=== PATIENT | female | born 1960 | race Caucasian/White ===

== ENCOUNTER 2018-12-10 08:58 | Inpatient (IN) ==
--- NOTE | 2018-12-10 08:29 | Discharge Summary ---
Orders not resulted at time of discharge: Pending orders 12/10/18 01:00 XR knee LT 1-2V [XR] Routine Hemoglobin and Hematocrit [HEME] Routine Date of Encounter: 12/11/18 Time of Encounter: 10:50 - Discharge Diagnosis (1) Arthritis of left knee Priority: Primary Status: Chronic (2) Status post total left knee replacement Priority: Primary Status: Acute (3) History of peptic ulcer disease Priority: Secondary Status: Chronic (4) Fibromyalgia Priority: Secondary Status: Chronic (5) Prediabetes Priority: Secondary Status: Chronic (6) History of anemia Priority: Secondary Status: Chronic (7) Vitamin B12 deficiency Priority: Secondary Status: Chronic - Hospital Course Hospital course: Ms. Duenas is a 58 year old female POD#1 Left robotic-assisted Total knee repl acement [arthritis] 12/10/18 Patient seen at bedside. A&Ox3 Dressing and incision intact. Bloody drainage bottom half of dressing - no active bleeding noted. No calf tenderness, erythema, or warmth. Neurovascularly intact b/l LE. Labwork, vitals, and medications reviewed. Pain control: Adequate Participating in therapy. All questions and concerns addressed. Educated on use of incentive spirometer, ambulation, and hydration. Patient educated on post-operative restrictions and care. Addressed: Nursing staff instructed to change dressing. Patient concerned about Aspirin use with h/o PUD and GI bleeds. Will have patient continue Lovenox upon discharge. Patient course and disposition discussed with Dr. Alvarez D/C plan: Home with Home health therapy today. Outpatient ortho follow up arranged. - Time Spent with Patient Total time spent providing and/or coordinating discharge services: - Discharge Medications Prescriptions: New Docusate Sodium [Colace] 100 mg PO BID 5 Days #10 capsule OxyCODONE Immed Rel [Roxicodone 5 MG] 5 mg PO Q6HR PRN 5 Days #20 tablet PRN Reason: Severe Pain Enoxaparin [Lovenox] 30 mg SQ Q12HCO 14 Days #28 syringe Acetaminophen [Non-Aspirin Extra Strength] 500 mg PO Q6H PRN 7 Days #28 tablet PRN Reason: Mild To Moderate Pain Continued Cholecalciferol (D-3) [Vitamin D] 1,000 unit PO DAILY Ca/Soy/Blk Cohos/Richard/Tea/Caf [Hm Estroplus Max Strength Cplt] 1 tab PO DAILY Lisinopril-HCTZ 10-12.5 [Prinzide 10-12.5] 1 tab PO DAILY Cyclobenzaprine [Flexeril] 10 mg PO HS PRN PRN Reason: Muscle Spasm Gabapentin [Neurontin] 800 mg PO HS Duloxetine HCl [Cymbalta] 120 mg PO DAILY Mv-Mn/FA/Vit K/Lycop/Lut/Coq10 [Daily Multivitamin Capsule] 1 tab PO DAILY Zolpidem Tartrate 5 mg PO HS PRN PRN Reason: Sleep Cyanocobalamin/Folic Acid [B-12 1,000 Mcg Sub Tablet] 1 tab SL Q48H Ferrous Sulfate 325 mg PO DAILY Fluticasone Propionate Nasal [Flonase] 1 spray NS DAILY PRN PRN Reason: Allergy Symptoms Discontinued HYDROcodone/Acet 5/325 mg [[place] 5-325 mg] 1 tab PO TID PRN PRN Reason: Pain Home Medications: Ca/Soy/Blk Cohos/Richard/Tea/Caf [Hm Estroplus Max Strength Cplt] 1 tab PO DAILY 07/11/17 [History] Cholecalciferol (D-3) [Vitamin D] 1,000 unit PO DAILY 07/11/17 [History] Cyclobenzaprine [Flexeril] 10 mg PO HS PRN 07/11/17 [History] Duloxetine HCl [Cymbalta] 120 mg PO DAILY 07/11/17 [History] Gabapentin [Neurontin] 800 mg PO HS 07/11/17 [History] Lisinopril-HCTZ 10-12.5 [Prinzide 10-12.5] 1 tab PO DAILY 07/11/17 [History] Mv-Mn/FA/Vit K/Lycop/Lut/Coq10 [Daily Multivitamin Capsule] 1 tab PO DAILY 07/11/17 [History] Cyanocobalamin/Folic Acid [B-12 1,000 Mcg Sub Tablet] 1 tab SL Q48H 12/10/18 [History] Ferrous Sulfate 325 mg PO DAILY 12/10/18 [History] Fluticasone Propionate Nasal [Flonase] 1 spray NS DAILY PRN 12/10/18 [History] Zolpidem Tartrate 5 mg PO HS PRN 12/10/18 [History] Acetaminophen [Non-Aspirin Extra Strength] 500 mg PO Q6H PRN 7 Days #28 tablet 12/11/18 [Rx] Docusate Sodium [Colace] 100 mg PO BID 5 Days #10 capsule 12/11/18 [Rx] Enoxaparin [Lovenox] 30 mg SQ Q12HCO 14 Days #28 syringe 12/11/18 [Rx] OxyCODONE Immed Rel [Roxicodone 5 MG] 5 mg PO Q6HR PRN 5 Days #20 tablet 12/11/18 [Rx] Allergies/Adverse Reactions: Allergy/AdvReac Type Severity Reaction Status Date / Time ciprofloxacin [From Cipro] Allergy Anaphylaxis Verified 11/21/18 15:03 Sulfa (Sulfonamide Allergy Hives Verified 11/21/18 15:03 Antibiotics) codeine AdvReac See Verified 11/21/18 15:03 Comments meloxicam AdvReac GI Bleed Verified 11/21/18 15:03 Date of admission: 12/10/18 Primary care physician: Gibson Browning MD Discharging clinician: Jose Alvarez Anticipated date of discharge: 12/11/18 - VTE Documentation of Mechanical Device: Venous foot pump, device - Patient Status Disposition: Home Health Service Condition: Good Functional capacity at discharge: uses cane/walker Overall status at discharge: patient is progressing back to baseline - Discharge Instructions Follow Up With: Yamilet Dean PAC [Physician Salesforce Trainer] - 12/19/18 1:30 pm (Second followup 12/26/18 @ 9:30am) Jose Alvarez MD [Partnered Physician] - 01/07/19 5:40 pm Additional Instructions: Discharge Instructions: Total Knee Replacement Please call [facility] ([phone]), your Primary Care Physician, or report to the Emergency Room if you have any of the following symptoms: Nausea, vomiting, fever greater that 101.5, swelling, chest pain, shortness of breath, increased pain/redness/drainage/odor for your incision site, numbness/tingling, or any other concerning symptoms. ACTIVITY:Weight-bearing as tolerated. You may progress off support (crutches or walker) as tolerated. Incentive Spirometer 10 times an hour. MEDICATIONS: Upon discharge resume your home medications. Take all the medications as prescribed. Take a stool softener if taking narcotic pain medications. Stool softeners are only effective if you drink enough fluids. Dri nk 6-8 glass of water or fluids a day, unless this is not allowed for another health problem. Despite using stool softeners, if you haven't had a bowel movement in 3 days, please switch to a gentle laxative. Gentle laxatives are sold over the counter. You should have a bowel movement within 24 hours, if not call the office. You will be discharged from the hospital with a prescription for pain m edication. You are encouraged to decrease the use of narcotic pain medication as tolerated. Should you require a refill, please call the office. [facility] prescribes narcotic pain medication for only 4-6 weeks after surgery. If you require pain medication beyond this time period, you may be referred to your Primary Care Physician or to the Pain Clinic for further evaluation. Plan ahead for refills on pain medication as many narcotics either need to be picked up at the office or mailed. It is best to call 48-72 hours in advance of needing a prescription refill so you don't run out of medication. To help control the post-operative pain, you may take NSAIDs (Aleve,Advil, Motrin, Ibuprofen, Naprosyn) or Tylenol as prescribed on the bottle in addition to the pain medication. ANTICOAGULATION (blood thinners): Continue your Aspirin, Lovenox or Coumadin as prescribed to help prevent a blood clot in the leg or in the lungs. As long as your incision remains dry and you tolerate the NSAIDs (Aleve, Advil, Motrin, ibuprofen, naprosyn), it is OK to use the NSAIDS while you are taking your anticoagulation medication. Should your incision start to drain, stop the NSAID and contact our office. Common symptoms of blood clot in the legs include: localized pain, swelling, calf tenderness, redness or discoloration of the skin. Blood clot in the lung symptoms include: shortness of breath, rapid pulse, sweating, and chest pain that worsens with deep breathing, coughing up blood, lightheadedness, feelings of anxiety. If you experience any of these symptoms notify your physician immediately, go to the emergency room, or if having trouble breathing, call 911. WOUND CARE: Leave the dressing on for 7 to 10days. You may change the dressing if it becomes saturated greater than 50%. Do not get the dressing wet at anytime. Wash your hands with antibacterial soap, rinse and dry prior to any wound care. If you have amelia the visiting nurse or rehab facility can remove the stapes 10-14 days after surgery and place steri-strips across the wound. Kassidy ve the steri-strips in place until they fall off on their won. You may let water from the shower run on top of the steri-strips. If you do not have a visiting nurse or rehab facility, you will need to return to the office at 10-14 days for the amelia to be removed. If you have itching or redness around the dressing call the office. FOLLOW-UP: Please follow up with your surgeon in the orthopedic clinic in 4 weeks from the day of surgery. If you have amelia that need to be removed, you will need to come back to the office in 10-14 days from the day of surgery. - Diet and Activity Activity: as per physical therapy Diet: advance to your usual diet
[~2018-12-10 08:58] MED LIST: Ropivacaine/PF 0.5% 24.62 ML, EPINEPHrine 0.25 MG, Ketorolac 15 MG, Water for inj. (ste... IR ONE
[2018-12-10] MEDS ORDERED: CeFAZolin Syr 2,000MG/20 ML 2,000 MG/20 ML SYRINGE IVPB ONE (09:16)
--- NOTE | 2018-12-10 09:22 | History & Physical Report ---
Date of Encounter: 12/10/18 Time of Encounter: 09:22 24 Hour HP Update - Instructions Instructions: If the History and Physical is less than 30 days old and was completed prior to A.M. admission and or procedure and has NOT been updated on calendar day of procedure please complete this update prior to performing procedure. - Update Patient reports changes in Medical Condition: No Changes in examination, assessment, or condition: No Changes in Medication: No Preop tests/diagnostics Reviewed: Yes Surgery Remains Indicated: Yes Consent for Planned Operative Procedure(s) Verified: Yes - Pre-Operative Checklist Preoperative Checklist Indicated: No Prophylactic Antibiotic Ordered: Yes Is VTE Prophylaxis Indicated?: Yes
[2018-12-10] MEDS ORDERED: Ringers Solution, Lactated 1,000 ML IVC SCH ×2 (09:30→13:35)
[2018-12-10] MEDS ORDERED: *HR* FentaNYL (PF) 100 MCG/2 ML VIAL ONE (09:39)
[2018-12-10] MEDS ORDERED: *HR* Midazolam HCl 2 MG/2 ML VIAL ONE (09:39)
[2018-12-10] MEDS ORDERED: Lidocaine -MPF 2% 2 ML VIAL ONE (09:40)
[2018-12-10] MEDS ORDERED: Propofol 500 MG/50 ML INFUS..BTL ONE ×2 (09:41→13:05)
[2018-12-10] MEDS ORDERED: Ethanol\\Acetic Acid\\Na Ace\\Ben 1,000 ML IRRIG.SOLN IR ONE (10:23)
[2018-12-10] MEDS ORDERED: ROPIVACAINE HCL/PF 0.5% 30 ML VIAL ONE (10:35)
--- NOTE | 2018-12-10 10:37 | Anesthesia Evaluation PreOp ---
Date of Encounter: 12/10/18 Time of Encounter: 10:35 - Past History Planned Operation: Left Total Knee Arthroplasty Cardiac History: HTN Pulmonary History: Snore, ESTEFANI Dx (uses CPAP) PROPERTY MANAGEMENT ACCOUNTANT History: Denies Any Significant HX Other Medical History: Other (depression, fibromyalgia) Anesthesia History: No Prior Anesthetic Complications, Past Anesthesia Alcohol Use: occasionally Drug use: none Medications and Allergies Ca/Soy/Blk Cohos/Richard/Tea/Caf [Hm Estroplus Menopause Caplet] 1 tab PO DAILY 07/11/17 [History] Cholecalciferol (D-3) [Vitamin D] 1,000 unit PO DAILY 07/11/17 [History] Cyclobenzaprine [Flexeril] 10 mg PO HS PRN 07/11/17 [History] Duloxetine HCl [Cymbalta] 120 mg PO DAILY 07/11/17 [History] Gabapentin [Neurontin] 800 mg PO HS 07/11/17 [History] HYDROcodone/Acet 5/325 mg [[place] 5-325 mg] 1 tab PO TID PRN 07/11/17 [History] Lisinopril-HCTZ 10-12.5 [Prinzide 10-12.5] 1 tab PO DAILY 07/11/17 [History] Mv-Mn/FA/Vit K/Lycop/Lut/Coq10 [Daily Multivitamin Capsule] 1 tab PO DAILY 07/11/17 [History] Cyanocobalamin/Folic Acid [B-12 1,000 Mcg Sub Tablet] 1 tab SL Q48H 12/10/18 [History] Ferrous Sulfate 325 mg PO DAILY 12/10/18 [History] Fluticasone Propionate Nasal [Flonase] 1 spray NS DAILY PRN 12/10/18 [History] Zolpidem Tartrate 5 mg PO HS PRN 12/10/18 [History] Allergy/AdvReac Type Severity Reaction Status Date / Time ciprofloxacin [From Cipro] Allergy Anaphylaxis Verified 11/21/18 15:03 Sulfa (Sulfonamide Allergy Hives Verified 11/21/18 15:03 Antibiotics) codeine AdvReac See Verified 11/21/18 15:03 Comments meloxicam AdvReac GI Bleed Verified 11/21/18 15:03 - Meds/Allergy Pre-op Review Medications Reviewed: Yes Allergies Reviewed: Yes Beta Blockers on Current Med List: No Anesthesia Results - Labs Laboratory Tests 11/21/18 11/21/18 11/21/18 15:20 15:20 15:20 WBC 5.5 Hgb 11.7 Hct 36.1 Plt Count 260 PT 10.4 INR 0.9 APTT 32.2 Sodium 139 Potassium 4.0 BUN 18 Creatinine 0.61 - Imaging EKG: report reviewed (11/21/2018 SINUS RHYTHM LOW QRS VOLTAGE IN PRECORDIAL LEADS ANTERIOR MYOCARDIAL INFARCTION, OF INDETERMINATE AGE INFERIOR MYOCARDIAL INFARCTION, OF INDETERMINATE AGE) Anesthesia Exam O2 Sat Height 1.68 m Height 1.68 m Weight 92.533 kg Weight 92.533 kg O2 Sat by Pulse Oximetry 98 Vital Signs Temp Pulse Resp BP Pulse Ox 99.0 F 74 18 99/61 98 12/10/18 09:55 12/10/18 09:55 12/10/18 09:55 12/10/18 09:55 12/10/18 09:55 Height: 5'6'' Weight: 204 lbs NPO (# of Hours): 8 Pain Scale: 0 Pain Scale Used: Numeric (1 - 10) - HEENT Pupil (Motor): EOMI Mallampati: II Teeth: Normal Oral Opening: Greater than 3 - PROPERTY MANAGEMENT ACCOUNTANT LOC: Oriented PROPERTY MANAGEMENT ACCOUNTANT Motor: Normal RUE, Normal LUE, Normal RLE, Normal LLE, Normal Face PROPERTY MANAGEMENT ACCOUNTANT Sensory: Normal: RUE, LUE, RLE, LLE, Face - Cardiac Rhythm: Regular Murmur: None - Pulmonary Breath Sounds: bilateral Clear Respiratory Effort: Symmetrical Anesthesia Assess/Plan ASA Score: 2 Level of consciousness: Cooperative, Oriented, Tranquil Anesthetic Plan: Regional Nerve Block, Spinal Regional Nerve Block Plan: Adductor canal Monitoring Plan: Standard Monitors Recovery Plan: PACU
[2018-12-10] MEDS ORDERED: Gabapentin 300 MG CAPSULE PO ONE (10:43)
[2018-12-10] MEDS ORDERED: Gabapentin 300 MG CAPSULE ONE (10:46)
[2018-12-10] MEDS ORDERED: *HR* PHENYLEPHRINE 1,000 MCG/10 ML SYRINGE IVP ONE ×2 (11:26→13:05)
[2018-12-10] MEDS ORDERED: EPHEDrine 50 MG/ML VIAL ONE (11:35)
--- NOTE | 2018-12-10 12:10 | Orthopedic Operative Note ---
Date of procedure: 12/10/18 Pre-op diagnosis: Left knee arthritis Post-op diagnosis: same Procedure: Procedure: Left robotic-assisted Total knee replacement Estimated blood loss: 200 cc Hardware: Metal and polyethylene replacement. [place] Femur: 3 Tibia: 3 TS insert: 9 Patella: 36 Exam Under anesthesia: 9 degrees flexion contracture 4 degrees varus as calculated by the robot full flexion and no instability Procedural Notes: Grade 4 arthritic changes all 3 compartments. Operative procedure: The patient was brought to the operating room and placed on the operating room table. After general anesthesia was administered the operative knee was examined. Findings were noted in the exam under anesthesia. The operative extremity was prepped and draped in sterile surgical fashion. The patient received IV antibiotics prior to skin incision. A standard midline incision was made centered over the patella. The incision was made through the skin and subcutaneous tissue. A medial parapatellar tendon approach was performed. Care was taken to preserve tissue along the medial aspect of the patella. And to protect the patella tendon. The deep MCL was released off the medial tibia. The infra patella fat pad was excised. The patella was everted and cut was made at the level of the insertion of the quadriceps and patella tendon. The patella was sized the guide was seated and the lug holes are drilled. Knee was brought into flexion. Patient noted to have grade 4 arthritic changes all 3 components. Steinmann pins were placed in the tibia and the femur for the tibial and femoral arrays respectively. Checkpoints were also placed in the tibia and the femur for calculation purposes. The knee including the femur and the tibial registered. Osteophytes, ACL and PCL were excised at this point. Extension and flexion were assessed with a valgus stress components were adjusted on the computer to balance the knee. Femoral cuts were made first with robotic assistance, these included the anterior cut posterior cuts chamfer cuts. Tibial cut was then performed with robotic assistance as well. Bone fragments were removed, as well as the medial and lateral meniscus. The size 3 femoral guide was seated box cut was made lug holes are drilled. The size 3 tibial tray was seated and prepared with the fin cutter. Trial reduction with the 9 TS Samantha revealed extension of 0 degree and 1 varus full flexion. No varus valgus instability. Trial reduction revealed excellent patella tracking. All trial components were removed all bony surfaces were irrigated. The Tibia was seated followed by the femur, The selected Samantha size was seated and secured patella. Patient had similar findings for motion and stability. The knee was closed by the PA. The knee was then irrigated out with 2 L of pulse irrigation. The extensor mechanism was closed with #2 FiberWire suture and #2 PDS suture. The subcutaneous tissue was then irrigated and closed deep with #1 PDS suture superficially with 0 PDS suture and skin was closed with zip tie The patient was then placed in a sterile dressing and a postoperative brace extubated and transferred to recovery room in stable condition. Anesthesia: spinal Surgeon: Jose Alvarez Was there an assistant corporate secretary present: No Estimated blood loss (cc): 200 Condition: stable Disposition: PACU
--- NOTE | 2018-12-10 13:20 | Anesthesia Evaluation Post Op ---
Date of Encounter: 12/10/18 Time of Encounter: 13:19 - Vital Signs Vital Signs: Selected Entries 12/10/18 13:13 Temperature 98.7 F Pulse Rate 75 Respiratory Rate 14 Blood Pressure 100/59 O2 Sat by Pulse Oximetry 95 - Lungs Lungs: Clear Ascult./Percussion - Airway Airway: Non-obstructed - Cardiovascular Regular Rate - Mental Status Mental Status: Alert & Oriented, Answers Appropriately - Pain Pain Scale: 0 Pain Scale used: Numeric (1 - 10) - Nausea Vomiting Nausea Vomiting: Not Present - Hydration Hydration: Ice chips, Has not voided - Discharge PostOp Status: Transfer Patient to floor
[2018-12-10] MEDS ORDERED: *HR* Promethazine 25 MG/ML VIAL IVP PRN (13:35)
[2018-12-10] MEDS ORDERED: MOM Conc 10 ML UD.LIQ PO PRN (13:35)
[2018-12-10] MEDS ORDERED: Sennosides 8.6 MG TABLET PO PRN (13:35)
[2018-12-10] MEDS ORDERED: Cyanocobalamin (B-12) 1,000 MCG TABLET PO SCH (13:35)
[2018-12-10] MEDS ORDERED: Fluticasone Propionate Nasal 50 MCG/SPRAY BOTTLE NS PRN (13:35)
[2018-12-10] MEDS ORDERED: Ondansetron 4 MG/2 ML VIAL IVP PRN (13:35)
[2018-12-10] MEDS ORDERED: Temazepam 15 MG CAPSULE PO PRN (13:35)
[2018-12-10] MEDS ORDERED: Naloxone 0.4 MG/ML INJ IVP PRN (13:35)
[2018-12-10] MEDS ORDERED: traMADol 50 MG TABLET PO PRN (13:35)
[2018-12-10] MEDS: *HR* Enoxaparin 30 MG/0.3 ML SYRINGE SQ SCH (16:44)
[2018-12-10] MEDS: Gabapentin 300 MG CAPSULE PO SCH (16:44)
[2018-12-10] MEDS: HYDROcodone BIT/Homatropine 5 MG TABLET PO PRN ×2 (16:44→22:18)
[2018-12-10] MEDS: Ascorbic Acid 500 MG TABLET PO SCH (16:44)
[2018-12-10 17:41] LABS: Hematocrit 38.7 % (35.3-44.9); Hemoglobin 12.5 g/dL (11.5-15.4)
[2018-12-10] MEDS ORDERED: Gabapentin 400 MG CAPSULE PO SCH (21:00)
[2018-12-11] MEDS: *HR* OxyCODONE Immed Rel 5 MG TABLET PO PRN ×3 (01:22→14:28)
[2018-12-11] MEDS: HYDROcodone BIT/Homatropine 5 MG TABLET PO PRN ×2 (05:53→12:52)
[2018-12-11] MEDS: *HR* Enoxaparin 30 MG/0.3 ML SYRINGE SQ SCH (05:53)
[2018-12-11 06:50] LABS: Hematocrit 34.9 % (35.3-44.9); Hemoglobin 11.3 g/dL (11.5-15.4); Immature Granulocytes % 0.4 % (0-4); Lymphocytes # 1.1 K/mcL (0.6-4.6); Lymphocytes % 13.7 %; Mean Corpuscular HGB Conc 32.4 g/dL (31.6-35.5); Mean Corpuscular Hemoglobin 30.6 pg (28.0-33.3); Mean Corpuscular Volume 94.6 fL (83.0-100.0); Mean Platelet Volume 11.3 fL (9.4-12.4); Monocytes # 0.7 K/mcL (0.0-1.3); Monocytes % 8.8 %; Platelet Count 217 K/mcL (140-400); Red Blood Count 3.69 M/mcL (3.82-4.97); Red Cell Distribution Width 14.4 % (11.5-14.5); Segmented Neutrophils % 77.1 %; White Blood Count 7.8 K/mcL (4.3-11.1)
[2018-12-11 07:05] LABS: BUN/Creatinine Ratio 18 (6-26); Blood Urea Nitrogen 12 mg/dL (6-20); Carbon Dioxide 28 mEq/L (23-29); Chloride 103 mEq/L (98-107); Glucose 102 mg/dL (70-105); Osmolality,Calculated 292 (280-300); Potassium 4.1 mEq/L (3.5-5.1); Sodium 141 mEq/L (136-145); eGFR For African Americans > 60 (> 60); eGFR For Non-African Americans > 60 (> 60)
--- NOTE | 2018-12-11 08:04 | Orthopedics Progress Note ---
Date of Encounter: 12/11/18 Time of Encounter: 08:04 Subjective Interval history: Patient was seen this morning doing well without complaints. Afebrile vital signs stable. Operative extremity: Neurovascularly intact Dressing clean dry and intact Calves nontender Assessment and plan: Continue with postoperative care Hematocrit 34 Objective Vital signs: Vital Signs Temp Pulse Pulse Resp BP Pulse Ox 12/11/18 07:25 97.9 F 68 16 133/86 98 12/11/18 03:31 97.7 F 63 17 123/82 97 12/10/18 22:45 98.0 F 69 16 113/60 94 12/10/18 21:51 65 12/10/18 19:42 97.5 F L 67 17 116/74 96 12/10/18 13:38 98 F 80 20 98/61 95 12/10/18 13:13 98.7 F 75 14 100/59 95 12/10/18 13:03 67 16 96/57 95 12/10/18 12:53 72 20 95/56 94 12/10/18 12:43 98.5 F 72 16 102/52 94 12/10/18 11:06 75 16 98/64 97 12/10/18 10:56 88 16 111/59 97 12/10/18 10:42 81 16 116/67 98 12/10/18 09:55 99.0 F 74 18 99/61 98 Intake and Output 12/10/18 12/11/18 12/11/18 23:59 07:59 15:59 Intake Total 100 / 100 Balance 100 / -100 Intake: IV Fluids 100 / 100 Ancef 2,000 MG In 0.9 % Sodium 100 / 100 Chloride 100 ML @ 200 mls/hr IVPB Q8HR [facility] Rx#:[id number] Other: Stool Size Moderate Stool Consistency formed Stool Characteristics Normal for Patient Stool Color Brown # Voids 1 Weight 92.6 kg Patient Weight 12/11/18 23:59 Weight 92.6 kg - Labs CBC & BMP: 12/11/18 06:10 12/11/18 06:10 Labs: Abnormal lab results RBC 3.69 M/mcL (3.82-4.97) L 12/11/18 06:10 Hgb 11.3 g/dL (11.5-15.4) L 12/11/18 06:10 Hct 34.9 % (35.3-44.9) L 12/11/18 06:10 Consult Discharge Plan - Plan Referrals: Gibson Browning MD [Primary Care Provider] -
[2018-12-11] MEDS: Ascorbic Acid 500 MG TABLET PO SCH (08:34)
[2018-12-11] MEDS: Gabapentin 300 MG CAPSULE PO SCH ×2 (08:35→12:52)
[2018-12-11] MEDS ORDERED: Multivit/Ca/Min/Fe/FA 1 TAB TABLET PO SCH (09:00)
[2018-12-11] MEDS ORDERED: Cholecalciferol (D-3) 1,000 UNIT TABLET PO SCH (09:00)
[2018-12-11] MEDS ORDERED: NON-FORMULARY MEDICATION 1 EACH EACH (Mv-Mn/Fa/Vit K/Lycop/Lut/Coq10 [Daily Multivitamin C PO SCH (09:00)
--- NOTE | 2018-12-11 13:14 | Physician Discharge Referral ---
Home Health/Hosp Referral Info Transfer to: Home Health Attending Provider: Dr. Jose Alvarez - Diagnosis (1) Arthritis of left knee Priority: Primary Status: Chronic (2) Status post total left knee replacement Priority: Primary Status: Acute (3) History of peptic ulcer disease Priority: Secondary Status: Chronic (4) Fibromyalgia Priority: Secondary Status: Chronic (5) Prediabetes Priority: Secondary Status: Chronic (6) History of anemia Priority: Secondary Status: Chronic (7) Vitamin B12 deficiency Priority: Secondary Status: Chronic - Respiratory Orders Smoking Cessation: Smoking cessation has been advised. For more information, call the [place] Tobacco Quit Line at 7-625-VMZV-NOW. - Diet/Nutrition Diet/Nutrition Orders: Regular - Activity Activity Orders: Up ad young, Ambulate, Walker Activity: List: Total Knee replacement Precautions x 6 weeks Apply cold therapy wrap 3-6x/day for 20 minutes at a time. Encourage ambulation throughout the day and incentive spirometer 10x/hour. Elevate affected extremity above heart as tolerated. Brace: Wear knee immobilizer at night x 2 weeks. Opsite placed. Keep dressing intact until first follow up appointment. If greater than 50% saturated, notify office, remove dressing and place appropriate dressing back in place. Leave Zipline intact. Opsite dressing is water resistant, not water-proof. OK to shower, but do not get dressing wet. - Services Needed Following services are medically necessary services: Nursing, Home Health Aide, Physical Therapy, Occupational Therapy - Transfer Medications Prescriptions: Docusate Sodium [Colace] 100 mg PO BID 5 Days #10 capsule Enoxaparin [Lovenox] 30 mg SQ Q12HCO 14 Days #28 syringe Acetaminophen [Non-Aspirin Extra Strength] 500 mg PO Q6H PRN 7 Days #28 tablet PRN Reason: Mild To Moderate Pain OxyCODONE Immed Rel [Roxicodone 5 MG] 5 mg PO Q6HR PRN 5 Days #20 tablet PRN Reason: Severe Pain Home Medications: Ca/Soy/Blk Cohos/Richard/Tea/Caf [Hm Estroplus Max Strength Cplt] 1 tab PO DAILY 07/11/17 [History] Cholecalciferol (D-3) [Vitamin D] 1,000 unit PO DAILY 07/11/17 [History] Cyclobenzaprine [Flexeril] 10 mg PO HS PRN 07/11/17 [History] Duloxetine HCl [Cymbalta] 120 mg PO DAILY 07/11/17 [History] Gabapentin [Neurontin] 800 mg PO HS 07/11/17 [History] Lisinopril-HCTZ 10-12.5 [Prinzide 10-12.5] 1 tab PO DAILY 07/11/17 [History] Mv-Mn/FA/Vit K/Lycop/Lut/Coq10 [Daily Multivitamin Capsule] 1 tab PO DAILY 07/11/17 [History] Cyanocobalamin/Folic Acid [B-12 1,000 Mcg Sub Tablet] 1 tab SL Q48H 12/10/18 [History] Ferrous Sulfate 325 mg PO DAILY 12/10/18 [History] Fluticasone Propionate Nasal [Flonase] 1 spray NS DAILY PRN 12/10/18 [History] Zolpidem Tartrate 5 mg PO HS PRN 12/10/18 [History] Acetaminophen [Non-Aspirin Extra Strength] 500 mg PO Q6H PRN 7 Days #28 tablet 12/11/18 [Rx] Docusate Sodium [Colace] 100 mg PO BID 5 Days #10 capsule 12/11/18 [Rx] Enoxaparin [Lovenox] 30 mg SQ Q12HCO 14 Days #28 syringe 12/11/18 [Rx] OxyCODONE Immed Rel [Roxicodone 5 MG] 5 mg PO Q6HR PRN 5 Days #20 tablet 12/11/18 [Rx] Allergies/Adverse Reactions: Allergy/AdvReac Type Severity Reaction Status Date / Time ciprofloxacin [From Cipro] Allergy Anaphylaxis Verified 11/21/18 15:03 Sulfa (Sulfonamide Allergy Hives Verified 11/21/18 15:03 Antibiotics) codeine AdvReac See Verified 11/21/18 15:03 Comments meloxicam AdvReac GI Bleed Verified 11/21/18 15:03 Certification: Further, I certify that my clinical findings support that this patient is homebound (i.e. absences from home require considerable and taxing effort and are for medical reasons or jain services or infrequently or short duration when for other reasons) because: Homebound Reason: Post-surgery restriction and or conditions limit ability to leave home Attestation: My signature below is to certify that this patient is under my care and that I, or nurse practitioner, or a physician biology research assistant working with me, has a [id number] encounter with this patient.
[2018-12-11 16:21] VITALS: BP 114/67
== END 2018-12-11 17:09 | disposition home health service (06) | DRG 470 ==
LOC: SAMDAY 08:58 → 3NENU 13:16
PROVIDERS: ADMIT Orthopaedic Surgery; ATTEND Orthopaedic Surgery

== ENCOUNTER 2021-09-18 17:25 | Inpatient (IN) ==
[2021-09-18] MEDS ORDERED: Isovue-370 500 ML BOTTLE IVP ONE (19:07)
[2021-09-18 19:21] LABS: Basophils % 0.6 %; Eosinophils % 0.6 %; Hematocrit 23.9 % (35.3-44.9); Hemoglobin 7.9 g/dL (11.5-15.4); Immature Granulocytes % 0.6 % (0-4); Lymphocytes # 1.9 K/mcL (0.6-4.6); Lymphocytes % 29.8 %; Mean Corpuscular HGB Conc 33.1 g/dL (31.6-35.5); Mean Corpuscular Hemoglobin 32.8 pg (28.0-33.3); Mean Corpuscular Volume 99.2 fL (83.0-100.0); Mean Platelet Volume 11.9 fL (9.4-12.4); Monocytes # 0.5 K/mcL (0.0-1.3); Monocytes % 8.2 %; Neutrophils # 3.9 K/mcL (1.6-8.9); Nucleated Red Blood Cells 0.5 /100 WBC (0); Platelet Count 269 K/mcL (140-400); Red Blood Count 2.41 M/mcL (3.82-4.97); Red Cell Distribution Width 13.6 % (11.5-14.5); Segmented Neutrophils % 60.2 %; White Blood Count 6.5 K/mcL (4.3-11.1)
[2021-09-18 19:33] LABS: INR 1.1
[2021-09-18 19:36] LABS: Activated Partial Thrombo Time 30.2 Seconds (26.0-36.0)
[2021-09-18 19:43] LABS: Bacteria,Urine Few per hpf (None-Few); Bilirubin,Urine Negative (Negative); Blood,Urine Negative (Negative); Clarity,Urine Clear (Clear); Color,Urine Yellow (Yellow); Glucose,Urine (UA) Normal (Normal); Ketones,Urine Negative (Negative); Leukocyte Esterase,Urine Trace (Negative); Mucus,Urine Few per lpf (None-Few); Nitrite,Urine Negative (Negative); Protein,Urine Trace mg/dL (Neg-Trace); RBC,Urine 0-3 per hpf (0-3); Specific Gravity,Urine 1.023 (1.010-1.025); Squamous Epithelial Cell,Urine Few per hpf (None-Few); Urobilinogen,Urine Normal (Normal)
[2021-09-18 20:05] LABS: Alanine Aminotransferase 16 Units/L (7-52); Albumin 3.7 g/dL (3.5-5.7); Albumin/Globulin Ratio 1.9 (1.1-2.2); Alkaline Phosphatase 62 Units/L (34-104); Aspartate Amino Transferase 14 Units/L (13-39); BUN/Creatinine Ratio 42 (6-26); Bilirubin,Direct 0.1 mg/dL (0.0-0.2); Bilirubin,Indirect 0.4 mg/dL (0.0-1.0); Bilirubin,Total 0.5 mg/dL (0.3-1.0); Blood Urea Nitrogen 30 mg/dL (8-23); Carbon Dioxide 25 mEq/L (23-29); Chloride 103 mEq/L (98-107); Glucose 139 mg/dL (70-105); Lipase 30 Units/L (11-82); Osmolality,Calculated 292 (280-300); Potassium 3.9 mEq/L (3.5-5.1); Sodium 137 mEq/L (136-145); Total Protein 5.7 g/dL (6.4-8.9); Troponin I < 0.03 ng/mL (< 0.04); eGFR For African Americans > 60 (> 60); eGFR For Non-African Americans > 60 (> 60)
[2021-09-18] MEDS ORDERED: Pantoprazole 40 MG VIAL IVP ONE (21:15)
[2021-09-19] MEDS ORDERED: D5% in Water 1,000 ML IVC PRN (00:52)
[2021-09-19] MEDS ORDERED: Dextrose 4 GM Chewable Tablets PO PRN ×2 (00:52)
[2021-09-19] MEDS ORDERED: *HR* Dextrose 50 % in Water (Syg) 50 ML SYRINGE IVP PRN (00:52)
[2021-09-19] MEDS ORDERED: Acetaminophen 325 MG TABLET PO PRN (00:53)
[2021-09-19] MEDS ORDERED: Ondansetron 4 MG/2 ML VIAL IVP PRN (00:53)
[2021-09-19] MEDS ORDERED: Naloxone 0.4 MG/ML INJ IVP PRN (00:53)
[2021-09-19] MEDS ORDERED: Melatonin 3 MG TABLET PO PRN (00:53)
[2021-09-19] MEDS: 0.9 % Sodium Chloride 1,000 ML IVC SCH ×2 (01:08→11:26)
[2021-09-19] MEDS ORDERED: Saliva Stimulant 44.3ml BOTTLE PO PRN (01:38)
[2021-09-19] MEDS ORDERED: rOPINIRole 0.25 MG TABLET PO STA (01:55)
[2021-09-19] MEDS ORDERED: Morphine Sulfate 2 MG/ML SYRINGE IVP ONE (01:56)
[2021-09-19] MEDS ORDERED: 0.9 % Sodium Chloride 250 ML ONE (02:17)
[2021-09-19 03:06] LABS: Basophils % 0.4 %; Eosinophils # 0.1 K/mcL (0.0-0.6); Eosinophils % 1.2 %; Hematocrit 21.2 % (35.3-44.9); Immature Granulocytes % 0.4 % (0-4); Immature Reticulocyte % 35.4 % (11.0-38.0); Lymphocytes # 2.4 K/mcL (0.6-4.6); Lymphocytes % 31.2 %; Mean Corpuscular Hemoglobin 32.4 pg (28.0-33.3); Mean Corpuscular Volume 98.1 fL (83.0-100.0); Mean Platelet Volume 11.7 fL (9.4-12.4); Monocytes # 0.7 K/mcL (0.0-1.3); Monocytes % 9.6 %; Neutrophils # 4.4 K/mcL (1.6-8.9); Nucleated Red Blood Cells 0.5 /100 WBC (0); Platelet Count 259 K/mcL (140-400); Red Blood Count 2.16 M/mcL (3.82-4.97); Red Cell Distribution Width 13.6 % (11.5-14.5); Retculocyte # 0.15 M/mcL (0.05-0.10); Reticulocyte % 6.9 % (1.6-2.8); Segmented Neutrophils % 57.2 %; White Blood Count 7.7 K/mcL (4.3-11.1)
[2021-09-19 03:17] LABS: INR 1.1; Prothrombin Time 12.1 Seconds (9.4-12.1)
[2021-09-19 03:20] LABS: Activated Partial Thrombo Time 28.1 Seconds (26.0-36.0)
[2021-09-19 03:22] LABS: Magnesium 2.1 mg/dL (1.6-2.6); Phosphorous 3.9 mg/dL (2.7-4.5)
[2021-09-19 03:25] LABS: % Iron Saturation 35 % (15-50); Alanine Aminotransferase 16 Units/L (7-52); Albumin 3.4 g/dL (3.5-5.7); Albumin/Globulin Ratio 1.9 (1.1-2.2); Alkaline Phosphatase 56 Units/L (34-104); Aspartate Amino Transferase 14 Units/L (13-39); BUN/Creatinine Ratio 43 (6-26); Bilirubin,Total 0.5 mg/dL (0.3-1.0); Blood Urea Nitrogen 28 mg/dL (8-23); Calcium 8.6 mg/dL (8.6-10.3); Carbon Dioxide 25 mEq/L (23-29); Chloride 103 mEq/L (98-107); Globulin 1.8 g/dL (2.4-3.5); Glucose 104 mg/dL (70-105); Iron 113 mcg/dL (50-170); Osmolality,Calculated 286 (280-300); Potassium 3.6 mEq/L (3.5-5.1); Sodium 135 mEq/L (136-145); Total Protein 5.2 g/dL (6.4-8.9); Transferrin 231 mg/dL (203-362); eGFR For African Americans > 60 (> 60); eGFR For Non-African Americans > 60 (> 60)
[2021-09-19 03:42] LABS: Ferritin 38 ng/mL (10-120)
[2021-09-19 04:07] LABS: Folate > 22.3 ng/mL (3.0-16.0); Vitamin B12 844 pg/mL (250-1100)
[2021-09-19] MEDS: Pantoprazole 40 MG VIAL IVP SCH ×2 (05:30→17:15)
[2021-09-19] MEDS: Chlorhexidine Rinse 15 ML MOUTHWASH MM SCH ×2 (08:16→21:21)
[2021-09-19] MEDS: Loratadine 10 MG TABLET PO SCH (08:16)
[2021-09-19] MEDS ORDERED: lisinopriL 10 MG TABLET PO SCH (09:00)
[2021-09-19 11:52] LABS: Hematocrit 23.1 % (35.3-44.9); Hemoglobin 7.7 g/dL (11.5-15.4)
[2021-09-19] MEDS ORDERED: Lidocaine -MPF 2% 5 ML VIAL ONE (13:48)
[2021-09-19] MEDS ORDERED: rOPINIRole 0.25 MG TABLET PO PRN (15:30)
[2021-09-19] MEDS ORDERED: SODIUM CHLORIDE/NAHCO3/KCL/PEG 4,000 ML SOLN.RECON PO ONE (17:00)
[2021-09-19] MEDS: Fluticasone Propionate Nasal 50 MCG/SPRAY BOTTLE NS SCH (17:13)
[2021-09-20 01:55] LABS: Basophils % 0.5 %; Eosinophils # 0.1 K/mcL (0.0-0.6); Hematocrit 24.5 % (35.3-44.9); Immature Granulocytes % 0.9 % (0-4); Lymphocytes # 2.2 K/mcL (0.6-4.6); Lymphocytes % 39.8 %; Mean Corpuscular HGB Conc 32.7 g/dL (31.6-35.5); Mean Corpuscular Hemoglobin 32.5 pg (28.0-33.3); Mean Corpuscular Volume 99.6 fL (83.0-100.0); Mean Platelet Volume 11.6 fL (9.4-12.4); Monocytes # 0.5 K/mcL (0.0-1.3); Monocytes % 8.9 %; Neutrophils # 2.6 K/mcL (1.6-8.9); Nucleated Red Blood Cells 1.3 /100 WBC (0); Platelet Count 195 K/mcL (140-400); Red Blood Count 2.46 M/mcL (3.82-4.97); Segmented Neutrophils % 47.9 %; White Blood Count 5.5 K/mcL (4.3-11.1)
[2021-09-20 02:20] LABS: BUN/Creatinine Ratio 24 (6-26); Blood Urea Nitrogen 14 mg/dL (8-23); Calcium 8.3 mg/dL (8.6-10.3); Carbon Dioxide 21 mEq/L (23-29); Chloride 106 mEq/L (98-107); Glucose 111 mg/dL (70-105); Osmolality,Calculated 283 (280-300); Potassium 3.6 mEq/L (3.5-5.1); Sodium 136 mEq/L (136-145); eGFR For African Americans > 60 (> 60); eGFR For Non-African Americans > 60 (> 60)
[2021-09-20] MEDS: Pantoprazole 40 MG VIAL IVP SCH (05:08)
[2021-09-20] MEDS ORDERED: NON-FORMULARY MEDICATION 1 EACH EACH (Duloxetine Hcl [Cymbalta] 60 MG Capsule.Dr) PO SCH (09:00)
[2021-09-20] MEDS: Chlorhexidine Rinse 15 ML MOUTHWASH MM SCH (10:34)
[2021-09-20] MEDS: Loratadine 10 MG TABLET PO SCH (10:34)
[2021-09-20] MEDS: Fluticasone Propionate Nasal 50 MCG/SPRAY BOTTLE NS SCH ×2 (12:22→20:17)
[2021-09-20] MEDS ORDERED: *HR* Midazolam HCl 2 MG/2 ML VIAL ONE (13:50)
[2021-09-20] MEDS: rOPINIRole 0.25 MG TABLET PO PRN (20:20)
[2021-09-21 03:07] LABS: Hematocrit 17.2 % (35.3-44.9); Mean Corpuscular Hemoglobin 32.2 pg (28.0-33.3); Mean Corpuscular Volume 100.6 fL (83.0-100.0); Mean Platelet Volume 11.5 fL (9.4-12.4); Platelet Count 181 K/mcL (140-400); Red Blood Count 1.71 M/mcL (3.82-4.97); Red Cell Distribution Width 15.1 % (11.5-14.5); White Blood Count 6.9 K/mcL (4.3-11.1)
[2021-09-21 04:14] LABS: Hemoglobin 5.5 g/dL (11.5-15.4)
[2021-09-21] MEDS ORDERED: 0.9 % Sodium Chloride 250 ML ONE ×2 (06:27→08:09)
[2021-09-21 07:00] LABS: Mean Corpuscular HGB Conc 32.9 g/dL (31.6-35.5); Mean Corpuscular Hemoglobin 33.1 pg (28.0-33.3); Mean Corpuscular Volume 100.6 fL (83.0-100.0); Mean Platelet Volume 12.4 fL (9.4-12.4); Platelet Count 156 K/mcL (140-400); Red Blood Count 1.69 M/mcL (3.82-4.97); Red Cell Distribution Width 15.7 % (11.5-14.5); White Blood Count 6.2 K/mcL (4.3-11.1)
[2021-09-21 07:45] LABS: Hemoglobin 5.6 g/dL (11.5-15.4)
[2021-09-21] MEDS: Loratadine 10 MG TABLET PO SCH (08:09)
[2021-09-21 08:47] LABS: Basophils % 0.3 %; Nucleated Red Blood Cells 2.5 /100 WBC (0)
[2021-09-21 08:48] LABS: Eosinophils # 0.1 K/mcL (0.0-0.6); Eosinophils % 1.2 %; Hematocrit 17.4 % (35.3-44.9); Immature Granulocytes % 1.9 % (0-4); Lymphocytes # 1.7 K/mcL (0.6-4.6); Lymphocytes % 22.1 %; Mean Corpuscular HGB Conc 32.2 g/dL (31.6-35.5); Mean Corpuscular Hemoglobin 31.6 pg (28.0-33.3); Mean Corpuscular Volume 98.3 fL (83.0-100.0); Mean Platelet Volume 11.4 fL (9.4-12.4); Monocytes # 0.5 K/mcL (0.0-1.3); Monocytes % 6.7 %; Neutrophils # 5.1 K/mcL (1.6-8.9); Platelet Count 195 K/mcL (140-400); Red Blood Count 1.77 M/mcL (3.82-4.97); Red Cell Distribution Width 15.8 % (11.5-14.5); Segmented Neutrophils % 67.8 %; White Blood Count 7.5 K/mcL (4.3-11.1)
[2021-09-21 08:58] LABS: Hemoglobin 5.6 g/dL (11.5-15.4)
[2021-09-21 19:45] LABS: Hematocrit 23.5 % (35.3-44.9); Mean Corpuscular HGB Conc 32.8 g/dL (31.6-35.5); Mean Corpuscular Volume 97.5 fL (83.0-100.0); Mean Platelet Volume 11.8 fL (9.4-12.4); Platelet Count 204 K/mcL (140-400); Red Blood Count 2.41 M/mcL (3.82-4.97); Red Cell Distribution Width 16.7 % (11.5-14.5); White Blood Count 7.4 K/mcL (4.3-11.1)
[2021-09-21 19:46] LABS: Hemoglobin 7.7 g/dL (11.5-15.4)
[2021-09-21] MEDS: Fluticasone Propionate Nasal 50 MCG/SPRAY BOTTLE NS SCH (20:50)
[2021-09-21] MEDS ORDERED: NON-FORMULARY MEDICATION 1 EACH EACH (Duloxetine Hcl [Cymbalta] 60 MG Capsule.Dr) PO SCH (21:00)
[2021-09-22 00:51] LABS: Hematocrit 20.9 % (35.3-44.9); Hemoglobin 7.1 g/dL (11.5-15.4); Mean Corpuscular Hemoglobin 32.1 pg (28.0-33.3); Mean Corpuscular Volume 94.6 fL (83.0-100.0); Mean Platelet Volume 11.3 fL (9.4-12.4); Platelet Count 183 K/mcL (140-400); Red Blood Count 2.21 M/mcL (3.82-4.97); Red Cell Distribution Width 17.6 % (11.5-14.5); White Blood Count 7.1 K/mcL (4.3-11.1)
[2021-09-22 01:10] LABS: BUN/Creatinine Ratio 29 (6-26); Blood Urea Nitrogen 19 mg/dL (8-23); Calcium 8.3 mg/dL (8.6-10.3); Carbon Dioxide 23 mEq/L (23-29); Chloride 106 mEq/L (98-107); Glucose 106 mg/dL (70-105); Osmolality,Calculated 287 (280-300); Potassium 3.2 mEq/L (3.5-5.1); Sodium 137 mEq/L (136-145); eGFR For African Americans > 60 (> 60); eGFR For Non-African Americans > 60 (> 60)
[2021-09-22] MEDS: rOPINIRole 0.25 MG TABLET PO PRN ×2 (03:27→20:27)
[2021-09-22] MEDS: Pantoprazole 40 MG VIAL IVP SCH ×2 (05:45→17:17)
[2021-09-22 06:09] LABS: Hematocrit 21.6 % (35.3-44.9); Hemoglobin 7.2 g/dL (11.5-15.4)
[2021-09-22] MEDS: Loratadine 10 MG TABLET PO SCH (07:53)
[2021-09-22] MEDS ORDERED: Pantoprazole 40 MG VIAL IVP SCH (09:00)
[2021-09-22] MEDS ORDERED: 0.9 % Sodium Chloride 250 ML IVC SCH (10:30)
[2021-09-22] MEDS: Fluticasone Propionate Nasal 50 MCG/SPRAY BOTTLE NS SCH (20:27)
[2021-09-22 23:22] LABS: Hematocrit 25.6 % (35.3-44.9); Hemoglobin 8.5 g/dL (11.5-15.4)
[2021-09-23] MEDS: Pantoprazole 40 MG VIAL IVP SCH (05:39)
[2021-09-23 06:18] LABS: Basophils % 0.6 %; Eosinophils # 0.2 K/mcL (0.0-0.6); Eosinophils % 3.5 %; Hematocrit 26.3 % (35.3-44.9); Hemoglobin 8.5 g/dL (11.5-15.4); Immature Granulocytes % 2.3 % (0-4); Lymphocytes # 1.3 K/mcL (0.6-4.6); Lymphocytes % 27.3 %; Mean Corpuscular HGB Conc 32.3 g/dL (31.6-35.5); Mean Corpuscular Hemoglobin 31.6 pg (28.0-33.3); Mean Corpuscular Volume 97.8 fL (83.0-100.0); Mean Platelet Volume 11.3 fL (9.4-12.4); Monocytes # 0.5 K/mcL (0.0-1.3); Monocytes % 9.2 %; Neutrophils # 2.8 K/mcL (1.6-8.9); Platelet Count 180 K/mcL (140-400); Red Blood Count 2.69 M/mcL (3.82-4.97); Red Cell Distribution Width 20.1 % (11.5-14.5); Segmented Neutrophils % 57.1 %; White Blood Count 4.9 K/mcL (4.3-11.1)
[2021-09-23 06:37] LABS: BUN/Creatinine Ratio 21 (6-26); Blood Urea Nitrogen 15 mg/dL (8-23); Calcium 8.7 mg/dL (8.6-10.3); Carbon Dioxide 24 mEq/L (23-29); Chloride 108 mEq/L (98-107); Glucose 106 mg/dL (70-105); Osmolality,Calculated 289 (280-300); Potassium 3.7 mEq/L (3.5-5.1); Sodium 139 mEq/L (136-145); eGFR For African Americans > 60 (> 60); eGFR For Non-African Americans > 60 (> 60)
[2021-09-23 06:48] VITALS: O2SAT 100
[2021-09-23] MEDS: Loratadine 10 MG TABLET PO SCH (09:02)
[2021-09-23 11:05] VITALS: BP 135/71; PULSE 67; TEMP 98.5
== END 2021-09-23 13:45 | disposition home or self-care (01) | DRG 378 ==
LOC: EMEROOARM 17:25 → 2NENU 17:25 → SUATTDRO 23:15 → 2NENU 23:25
PROVIDERS: ADMIT Internal Medicine; ATTEND General Practice